=== PATIENT | female | born 1980 | race African-American/Black ===

== ENCOUNTER 2021-03-19 20:11 | Emergency (ER) | payer OTHER ==
--- NOTE | 2021-03-19 20:35 | NUR ---
PATIENT CALLED FOR TRIAGE, NO RESPONSE PATIENT LEFT WITHOUT BEING SEEN BY DR. FRANCO. NO FURTHER CARE PROVIDED FOR PATIENT.
--- NOTE | 2021-03-19 20:42 | NUR ---
CALLED FOR THE SECOND TIME, NO RESPONSE
--- NOTE | 2021-03-19 20:53 | NUR ---
CALLED FOR THE THIRD TIME, NO RESPONSE
== END 2021-03-19 20:35 | disposition home or self-care (01) ==
LOC: MED 20:11
DX: R06.02 Shortness of breath (principal); Z53.21 Procedure and treatment not carried out due to patient leaving prior to being seen by health care provider

== ENCOUNTER 2023-02-10 09:02 | Emergency (ER) | payer OTHER ==
[~2023-02-10] VITALS: Ht 154.9 cm; Wt 49.9 kg
[2023-02-10 09:22] VITALS: BP 131/91; PULSE 88; RESP 18; TEMP 97.9; O2SAT 100
--- NOTE | 2023-02-10 09:33 | NUR ---
42 Y/O F PATIENT PRESENTS TO ED WITH CHIEF COMPLAINT OF HEAD PAIN BACK, NECK PAIN AND VGAINAL BLEEDING FOR 15 DAYS. PT STATES SHE HAS A HX OF UTERINE FIBROIDS. DENIES N/V/D; SKIN IS PINK/WARM/DRY; AAOX4 WITH EVEN AND STEADY GAIT; LUNGS CLEAR BL; HR EVEN AND REGULAR; PT DENIES ANY FEVER, CP, SOB, OR COUGH AT THIS TIME; PATIENT STATES PAIN OF 10/10 AT THIS TIME; VSS; PATIENT POSITIONED FOR COMFORT; HOB ELEVATED; CALL LIGHT WITH IN REACH BEDRAILS UP X2; BED DOWN. ER MD MADE AWARE OF PT STATUS. PMHX UTERINE FIBROIDS ALLERGIES BACTRIM
[2023-02-10 09:36] VITALS: O2SAT 100
[2023-02-10] MEDS ORDERED: KETOROLAC 30 MG/ML VIAL IVP ONE (09:55)
[2023-02-10] MEDS ORDERED: NACL 0.9% 1,000 ML IV ONE (09:55)
--- NOTE | 2023-02-10 10:07 | NUR ---
PT has been medicated by VENU Ray per providers orders. 22 g Iv established and no signs of infiltration. Pt has been offered a blanket. Urine and lab work collected and sent to lab. Pt is resting at the [facility], on monitor. Call light with in reach. Plan of care explained. Will await providers orders.
[2023-02-10 10:09] LABS: BASOPHILS % (AUTO) 0.5 % (0.0-2.0); EOSINOPHILS # (AUTO) 0.1 K/uL (0-0.4); EOSINOPHILS % (AUTO) 1.2 % (0.0-4.0); HEMATOCRIT 26.7 % (36-48); HEMOGLOBIN 8.4 g/dL (12.0-16.0); LYMPHOCYTES # (AUTO) 1.8 K/uL (2.5-16.5); LYMPHOCYTES % (AUTO) 22.2 % (20.5-51.1); MEAN CORPUSCULAR HEMOGLOBIN 23 pg (27-31); MEAN CORPUSCULAR HGB CONC 31 g/dL (33-37); MEAN CORPUSCULAR VOLUME 74.3 fL (80-94); MONOCYTES # (AUTO) 0.7 K/uL (0.8-1.0); MONOCYTES % (AUTO) 9.1 % (1.7-9.3); NEUTROPHILS # (AUTO) 5.3 K/uL (1.8-7.7); PLATELET COUNT (AUTO) 379 K/uL (140-450); RED BLOOD CELL COUNT(AUTO) 3.59 MIL/uL (4.20-5.40); RED CELL DISTRIBUTION WIDTH 19.1 % (11.6-13.7); WHITE BLOOD COUNT (AUTO) 7.9 K/uL (4.8-10.8)
[2023-02-10 10:29] LABS: ALBUMIN 3.8 g/dL (3.4-5.0); ANION GAP 12.5 (8-16); CREATININE 0.6 mg/dL (0.6-1.3); POTASSIUM 3.5 mmol/L (3.5-5.1); TOTAL BILIRUBIN 0.1 mg/dL (0.0-1.0)
--- NOTE | 2023-02-10 11:32 | NUR ---
IV removed. Cath intact. No signs of distress noted.
[2023-02-10 11:33] VITALS: BP 119/84; PULSE 79; RESP 16; TEMP 97.9; O2SAT 100
--- NOTE | 2023-02-10 11:36 | NUR ---
Patient discharged with v/s stable. Written and verbal after care instructions given and explained. Patient verbalized understanding. Ambulatory with steady gait. All questions addressed prior to discharge. Advised to follow up with PMD.
== END 2023-02-10 11:36 | disposition home or self-care (01) ==
LOC: MED 09:02
DX: N93.9 Abnormal uterine and vaginal bleeding, unspecified (principal); R51.9 Headache, unspecified; M48.02 Spinal stenosis, cervical region; D25.9 Leiomyoma of uterus, unspecified; M54.2 Cervicalgia; Z88.1 Allergy status to other antibiotic agents; Z88.2 Allergy status to sulfonamides; Z98.890 Other specified postprocedural states
CPT/HCPCS: 36415; 80053; 81002; 81025; 84443; 85025; 85610; 85730; 86886; 86900; 86901; 96361; 96374; 99283; J1885; J7030